=== PATIENT | male | born 1955 | race Caucasian/White ===

== ENCOUNTER → 2020-09-04 | Outpatient (CLI) | payer MEDICARE | END | disposition home or self-care (01) | LOC: OR 13:53 | PROVIDERS: ATTEND Internal Medicine Clinical Cardiac Electrophysiology | DX: Z20.828 Contact with and (suspected) exposure to other viral communicable diseases (principal) | CPT/HCPCS: 87635 ==

== ENCOUNTER → 2020-09-04 | Outpatient (CLI) | payer MEDICARE ==
[~2020-09-04] MED LIST: OMNIPAQUE 350 MG/ML, 150 ML BOTTLE ONE
== END | disposition home or self-care (01) ==
LOC: CFH 12:12
PROVIDERS: ATTEND Internal Medicine Clinical Cardiac Electrophysiology
DX: I48.19 Other persistent atrial fibrillation (principal)
CPT/HCPCS: 71046; 75572; 82565; Q9967

== ENCOUNTER 2020-09-09 05:51 | Day surgery (SDC) | payer MEDICARE ==
[~2020-09-09] VITALS: Ht 180.3 cm; Wt 104.5 kg
[2020-09-09] MEDS ORDERED: METO-99 PO (06:26)
[2020-09-09] MEDS ORDERED: APIX5TAB PO (06:26)
[2020-09-09] MEDS ORDERED: HYDR-3237 PO (06:28)
[2020-09-09] MEDS ORDERED: IBUP-1223 PO (06:28)
[2020-09-09] MEDS ORDERED: SODIUM CHLORIDE 0.9% 1,000 ML IV SCH ×2 (06:30)
[2020-09-09 06:41] VITALS: BP 123/71
[2020-09-09 07:30] LABS: BASOPHILS % (AUTO) 1 % (0-1); EOSINOPHILS % (AUTO) 3 % (1-7); LYMPHOCYTES % (AUTO) 26 % (22-44); MEAN CORPUSCULAR HEMOGLOBIN 32.8 pg (27.5-34.5); MEAN CORPUSCULAR HGB CONC 33.6 g/dL (33.2-36.2); MEAN PLATELET VOLUME 8.1 fL (7.4-10.4); MONOCYTES % (AUTO) 8 % (2-9); NEUTROPHILS % (AUTO) 62 % (42-75); PLATELET COUNT 233 x10^3/uL (130-400); RED BLOOD COUNT 4.51 x10^6/uL (4.38-5.82); RED CELL DISTRIBUTION WIDTH 13.3 % (9.4-14.8)
[2020-09-09 07:34] LABS: PROTHROMBIN TIME 10.6 Seconds (9.6-11.5)
[2020-09-09 07:35] LABS: ANION GAP 4 mmol/L (5-15); CALCIUM 8.6 mg/dL (8.5-10.1); CHLORIDE 114 mmol/L (98-107); CREATININE 0.84 mg/dL (0.7-1.3)
[2020-09-09 07:37] LABS: MD NO
[2020-09-09] MEDS ORDERED: FENTANYL PF 250 MCG/5ML ONE (08:25)
[2020-09-09] MEDS ORDERED: MIDAZOLAM 1 MG/ML, 2ML ONE (08:25)
[2020-09-09] MEDS ORDERED: PROPOFOL 10 MG/ML, 50ML ONE (08:32)
[2020-09-09] MEDS ORDERED: LIDOCAINE 1%, 20ML ONE (08:44)
[2020-09-09] MEDS ORDERED: HEPARIN 1,000 UNITS/ML, 10ML ONE ×2 (09:20)
[2020-09-09] MEDS ORDERED: ONDANSETRON 2MG/ML, 2ML ONE (09:20)
[2020-09-09] MEDS ORDERED: DEXAMETHASONE 4 MG/ML, 5ML ONE (09:20)
[2020-09-09] MEDS ORDERED: ROCURONIUM 10MG/ML,5ML ONE (09:20)
[2020-09-09] MEDS ORDERED: SUCCINYLCHOLINE 20 MG/ML, 10ML ONE (09:20)
== END 2020-09-09 16:18 | disposition home or self-care (01) ==
LOC: CACL 05:51
PROVIDERS: ATTEND Internal Medicine Clinical Cardiac Electrophysiology
DX: I48.92 Unspecified atrial flutter (principal); I48.19 Other persistent atrial fibrillation; I10 Essential (primary) hypertension; Z79.01 Long term (current) use of anticoagulants; Z79.891 Long term (current) use of opiate analgesic; Z79.899 Other long term (current) drug therapy; Z91.013 Allergy to seafood
CPT/HCPCS: 36415; 80048; 85025; 85610; 93005; 93312; 93321; 93325; 93613; 93621; 93623; 93653; C1730; C1732; C1766; C1894; J0330; J1100; J1644; J2250; J2405; J3010; J2704